=== PATIENT | male | born 1955 | race Caucasian/White ===

== ENCOUNTER → 2022-03-14 09:14 | Outpatient (REF) | payer OTHER, SELFPAY ==
--- NOTE | 2022-03-14 09:25 | CA_ITS ---
Acquisition Time: 2022-03-14 10:01:32 Total Exercise Time: 00:05:00 Test Indications: CHEST PRESSURE Medications: LISINOPRIL ASA Protocol: GINO Max HR: 141 BPM 90% of Pred: 155 BPM Max BP: 148/080 mmHG Max Work Load: 7.0 METS Exercise stress test with exercise 5 min of Gino protocol, with mild shortness of breath and the start of his mid chest tightness, with isolated PVC, with normotensive response to exercise, with EKG changes meeting criteria for ischemia: ST depressions inferiorly and V3-V6, ST elevation aVR with slow gradual improvement in recovery. His symptoms resolved with 3 minutes of rest. Test reviewed with Dr Durham [facility] and left about report for Dr Fitzgerald, urgency of abnormal findings expressed. Pt informed of abnormal stress test. He has no cardiac hx. Informed him of need for light activity only. s/s angina reviewed. ED care if needed for symptoms. Continue daily aspriin, as he is already on. Call PCP office to further discuss plan if he does not hear from then by tomorrow. Pt states full understanding. Referred By: Ayaz Fitzgerald Overread By: LORE CHAPMAN
== END ==
LOC: HO.CARD 09:14
PROVIDERS: PCP Physician Assistant; Visit Provider Physician Assistant
DX: I20.9 Angina pectoris, unspecified (principal)
CPT/HCPCS: 93017

== ENCOUNTER → 2022-05-16 07:59 | Outpatient (BNVA) | payer OTHER, SELFPAY | PROVIDERS: PCP Physician Assistant; Visit Provider Nurse Practitioner | DX: Z01.818 Encounter for other preprocedural examination (principal); R07.9 Chest pain, unspecified; Z12.11 Encounter for screening for malignant neoplasm of colon | CPT/HCPCS: 99202 ==

== ENCOUNTER 2023-01-13 08:31 | Day surgery (SDC) | payer OTHER, SELFPAY ==
[2023-01-08 12:57] VITALS: BMI 21.2
--- NOTE | 2023-01-09 13:43 | P.CONAN_ITS ---
HPI - Anesthesia Eval Consult details Narrative: 67yo M for Colonoscopy Cardiac optimized [facility] Active Problems Active Problems: All Active Problems (Updated 01/09/23 @ 10:00 by Yenni Amezcua, RN) Pre-op exam (Acute) Chronic low back pain (Acute) Tinnitus (Acute) Chest pain (Acute) Past Medical History Medical History (Updated 01/09/23 @ 10:00 by Yenni Amezcua, RN) CVA, old, facial weakness Elevated cholesterol HTN (hypertension) Hx of frostbite Surgical History Surgical History (Updated 01/08/23 @ 12:54 by Yenni Amezcua, RN) Hx of colonoscopy [place] teeth removed Social History Social History (Updated 01/08/23 @ 13:00 by Yenni Amezcua, RN) Household Members: Significant Other Are you a primary care support representative to a significant other at home: No Do you presently have visiting nurse or other home services: No Alcohol intake: current Alcohol intake frequency: does not drink Patient Tobacco Use Status: Never used Tobacco Use of substances other than those prescribed or required for medical reasons: No Meds Allergies Allergy/AdvReac Type Severity Reaction Status Date / Time Rdndltm-FLH-DnH Reductase AdvReac Intermediate muscle Verified 01/08/23 12:55 Inhibitor weakness Home Medications Medication Instructions Recorded Confirmed Last Taken Type aspirin 81 mg chewable tablet 81 mg PO DAILY 01/08/23 01/08/23 Unknown History cholecalciferol (vitamin D3) 25 25 mcg PO DAILY 01/08/23 01/08/23 Unknown History mcg (1,000 unit) tablet (Vitamin D3) ezetimibe 10 mg tablet (Zetia) mg 01/08/23 01/08/23 Unknown History lisinopril 10 mg tablet 10 mg PO DAILY 01/08/23 01/08/23 Unknown History metoprolol succinate 25 mg 25 mg PO DAILY 01/08/23 01/08/23 Unknown History tablet,extended release 24 hr multivitamin 1 tab PO DAILY 01/08/23 01/08/23 Unknown History nitroglycerin 0.4 mg sublingual mg 01/08/23 01/08/23 Unknown History tablet Exam Exam Date and Time: January 09, 2023 1343 Height,Weight and Vital Signs: Height 6 ft 2 in Weight 74.843 kg Narrative Narrative: EKG 05/2022 NSR @ 64 Cardiac cath 2021 severe proximal circumflex stenosis (medical management) ECHO 2021 RV nml in size and function LV size nml LV wall thickness nml LV function nml LVEF 55-60% No RWMA Grade 1 DD with impaired LV relax Assessment and Plan Assessment Anesthesia Assessment: Chart Reviewed
[2023-01-13 09:14] VITALS: BP 152/73; PULSE 79; RESP 16; TEMP 36.6; O2SAT 100
--- NOTE | 2023-01-13 09:36 | P.CONAN_ITS ---
[facility] Active Problems Active Problems: All Active Problems (Updated 01/09/23 @ 10:00 by Yenni Amezcua, HKANH) Pre-op exam (Acute) Chronic low back pain (Acute) Tinnitus (Acute) Chest pain (Acute) Past Medical History Medical History (Updated 01/09/23 @ 10:00 by Yenni Amezcua, RN) CVA, old, facial weakness Elevated cholesterol HTN (hypertension) Hx of frostbite Family History Family history of problems with anesthesia: No Surgical History Surgical History (Updated 01/08/23 @ 12:54 by Yenni Amezcua, RN) Hx of colonoscopy [place] teeth removed History of Problems with Anesthesia: No Social History Social History (Updated 01/08/23 @ 13:00 by Yenni Amezcua RN) Household Members: Significant Other Are you a primary director of primary care to a significant other at home: No Do you presently have visiting nurse or other home services: No Alcohol intake: current Alcohol intake frequency: does not drink Patient Tobacco Use Status: Never used Tobacco Have you been hit, kicked, punched, or otherwise hurt by someone within the past year? If so, by whom?: No Are you DNR?: No Advance Directives: No Advance Directives Information Provided: Yes Advance Directives on File: No Recently lost weight without trying: Yes How much weight loss: 14-23 pounds Eating poorly because of decreased appetite: No Nutrition screen score: 4 Nutrition Risks: No Nutritional Risk Poor oral hygiene: No Meds Allergies Allergy/AdvReac Type Severity Reaction Status Date / Time Blnfcun-PQB-NxJ Reductase AdvReac Intermediate muscle Verified 01/08/23 12:55 Inhibitor weakness Active Medications: Current Medications Lactated Ringer's (Lr) 1,000 mls @ 100 mls/hr IVCONT .Q10H [facility] Home Medications Medication Instructions Recorded Confirmed Last Taken Type aspirin 81 mg chewable tablet 81 mg PO DAILY 01/08/23 01/13/23 01/11/23 History cholecalciferol (vitamin D3) 25 25 mcg PO DAILY 01/08/23 01/13/23 Unknown History mcg (1,000 unit) tablet (Vitamin D3) ezetimibe 10 mg tablet (Zetia) 10 mg PO DIRECTED 01/08/23 01/13/23 Unknown History lisinopril 10 mg tablet 10 mg PO DAILY 01/08/23 01/13/23 Unknown History metoprolol succinate 25 mg 25 mg PO DAILY 01/08/23 01/13/23 01/13/23 History tablet,extended release 24 hr multivitamin 1 tab PO DAILY 01/08/23 01/13/23 Unknown History nitroglycerin 0.4 mg sublingual 0.4 mg sublingual DIRECTED PRN 01/08/23 01/13/23 Unknown History tablet Chest Pain Exam Exam Date and Time: January 13, 2023 0936 Height,Weight and Vital Signs: Height 6 ft 2 in Weight 74.843 kg Last Vital Signs Temp 97.9 F 01/13/23 09:14 Pulse 79 01/13/23 09:14 Resp 16 01/13/23 09:14 BP 152/73 H 01/13/23 09:14 Pulse Ox 100 01/13/23 09:14 O2 Del Method Room Air 01/13/23 09:14 Airway Mallampati Class: II TM Dist: >3cm Neck ROM: Full Heart: rrr Lungs: cta Assessment and Plan Assessment Anesthesia Assessment: Anesthesia Plan Discussed and Chart Reviewed Final Anesthetic Review Family History of Problems with Anesthesia: No History of Problems with Anesthesia: No NPO: Yes ASA Class: II Final Preanesthetic Review: No Changes in Pt Med Stat, Meds/Allgs Chart Reviewed and Consent Obtained/Reviewed Patient Risk: Intermediate Procedure Risk: Intermediate Anesthetic Plan Anesthetic Plan: MAC: Disposition: Standard PACU
--- NOTE | 2023-01-13 09:46 | MHC.SHP ---
Pre-Procedural Eval Section A Date of Service: 01/13/23 The patient is an INPATIENT: No The History & Physical has been completed within 30 days and I have reviewed it.: No Section B Chief Complaint: screening Relevant Family History (Specify if Yes): No Relevant Social History: None Present Medications: see Short Stay Collaborative assessment Medical History: Significant History (CVA, old, facial weakness) History of Previous Operations: Relevant previous surgery/procedure and date(s) ( wisdom teeth removal) Allergies: Allergies Allergy/AdvReac Type Severity Reaction Status Date / Time Yrhuenh-JGM-CmX Reductase AdvReac Intermediate muscle Verified 01/08/23 12:55 Inhibitor weakness Review of Systems Sugical H&P ROS: Negative: Constitution, Cardiovascular, Respiratory and Gastrointestinal Exam Surgical H&P Exam: Normal: Heart, Normal: Lungs, Normal: Extremities and Normal: Abdomen Plan Diagnosis/Plan: Unchanged I have reviewed the history and physical and performed a pertinent physical examination on my patient. No changes have occurred unless specified. Time Spent With Patient Time: Total time managing care of this patient today ____ minutes.
--- NOTE | 2023-01-13 09:47 | W.PM.OPN ---
Operative Note Operative Note Date of Service: 01/13/23 Narrative: COLONOSCOPY TILL CECUM Pre-op diagnosis: Colon cancer screening Post-op diagnosis:? diverticulosis, hemorrhoids Endoscopist:? Eboni Philippe MD Anesthesia:?MAC Consent: Indications for the procedure and potential complications of bleeding, perforation, reaction to medications and missed diagnosis were discussed with the patient and informed consent was obtained. Instrument: Olympus CF H 190 L variable stiffness adult colonoscope Monitoring: Vital signs and clinical assessment, intermittent blood pressure monitoring, continuous EKG monitoring, Pulse oximetry and Carbon Dioxide monitoring were done throughout the procedure. Please see anesthesia flowsheet. Colon withdrawl time was 11 minutes. Procedure: The patient was placed in the left lateral decubitis position and pre-procedure medications were administered. After a digital rectal examination of the ano-rectum, the video colonoscope was inserted into the rectum and advanced through the colon to the cecum. The colonoscope was slowly withdrawn in a retrograde panoramic fashion and the colon mucosa was carefully examined including a retroflexed view of the rectum. Findings and interventions are described below. Procedure Difficulty: colon was long and there was some loop formation. No maneuvers were required Findings: Terminal Ileum: Not evaluated Cecum: Normal Ascending Colon: Normal Transverse Colon: Normal Descending Colon: Normal Sigmoid Colon: Moderate diverticulosis Rectum: Normal Ano-rectum: Moderate internal hemorrhoids Colon preparation: Excellent Impression and Post Procedure Diagnosis: Colonoscopy Findings: No polyps were detected Moderate diverticulosis seen in the sigmoid colon Moderate hemorrhoids on retroflexed exam. Plan: Patient has an appointment on 01/28/23 in the GI [facility] with Sabrina Giron NP . Repeat Colonoscopy in 10 years (earlier if pt develops any lower GI symptoms or in case of new family history). Above findings were reviewed with the patient and diverticulosis handout was given in the discharge area
[2023-01-13] MEDS: Lactated Ringers 1,000 ML 100 ML IVCONT (09:58)
[2023-01-13 10:49] VITALS: BP 132/78; PULSE 87; RESP 16; TEMP 36.3; O2SAT 96
[2023-01-13 11:03] VITALS: BP 127/72; PULSE 74; RESP 16; O2SAT 98
[2023-01-13 11:17] VITALS: BP 140/78; PULSE 67; RESP 16; TEMP 36.3; O2SAT 98
== END 2023-01-13 11:56 | disposition home or self-care (01) ==
PROVIDERS: PCP Physician Assistant; Visit Provider Internal Medicine Gastroenterology
PROC: 0DJD8ZZ Inspection of Lower Intestinal Tract, Via Natural or Artificial Opening Endoscopic (ICD-10-PCS; CPT 45378; principal; 2023-01-13 10:10)
DX: Z12.11 Encounter for screening for malignant neoplasm of colon (principal); K57.30 Diverticulosis of large intestine without perforation or abscess without bleeding; K64.8 Other hemorrhoids; I69.392 Facial weakness following cerebral infarction; I10 Essential (primary) hypertension; E78.00 Pure hypercholesterolemia, unspecified; R07.9 Chest pain, unspecified; G89.29 Other chronic pain; M54.50 Low back pain, unspecified; H93.19 Tinnitus, unspecified ear; Z79.82 Long term (current) use of aspirin; Z79.899 Other long term (current) drug therapy; Z88.8 Allergy status to other drugs, medicaments and biological substances
CPT/HCPCS: 45378

== ENCOUNTER 2023-10-08 13:50 | Outpatient (AMB) | payer OTHER, SELFPAY ==
--- NOTE | 2023-10-08 14:00 | A.OFFVIS_ITS ---
Intake Vital Signs 10/08/23 14:05 Weight 175 lb BP 140/68 H Blood Pressure Location Rt brachial Position Sitting Pulse 63 Intake Visit Reasons: painful RIH Intake Note: Patient here referred by PCP Dr. Fitzgerald for painful Rt inguinal hernia. Has been present for 1m. Patient c/o: difference with uriation. More sense of urgency. Head Of Housekeeping Required: No Accompanied by: Self / Same As Patient Allergies Iexonpn-FSG-ZsF Reductase Inhibitor Adverse Reaction (Intermediate, Verified 10/08/23 14:01) muscle weakness HPI HPI Comments History of Present Illness Details Patient presents with a several month history of progressive worsening and enlarging right inguinal hernia. He presents here for further evaluation. Patient denies any specific GE new GI issues or complaints. He is tolerating his diet. Having normal bowel habits. His activity levels are somewhat limited secondary to the symptomatic hernia. He walks very large dog which causes lot of pulling which he thinks is aggravated hernia. Chart was reviewed patient evaluated [facility] Medical History (Updated 01/09/23 @ 10:00 by Yenni Amezcua RN) Hx of frostbite Elevated cholesterol HTN (hypertension) CVA, old, facial weakness Surgical History (Updated 10/08/23 @ 14:33 by Mango Hall MD) Hx of colonoscopy [place] teeth removed Social History (Updated 01/08/23 @ 13:00 by Yenni Amezcua, KHANH) Household Members: Significant Other Are you a primary spiritual care coordinator to a significant other at home: No Do you presently have visiting nurse or other home services: No Alcohol intake: current Alcohol intake frequency: does not drink Patient Tobacco Use Status: Never used Tobacco Physical Exam Vital Signs: Last Vital Signs Pulse 63 10/08/23 14:05 BP 140/68 H 10/08/23 14:05 Chest Other: Chest breath sounds bilaterally, HS 1 in 2 GI Other: Patient was examined both supine and standing with Valsalva. Abdomen soft benign. Left groin negative. Genitalia within normal limits. Very large right inguinal hernia. Assessment & Plan Assessment & Plan (1) Right inguinal hernia: Code(s): K40.90 - Unilateral inguinal hernia, without obstruction or gangrene, not specified as recurrent Plan Risks, benefits, alternatives of open right inguinal hernia repair with mesh were reviewed with the patient and included but not limited to bleeding, infection, recurrence, numbness, pain, scarring the patient wished to proceed. All questions answered. Arrangements will be made for this. Coding Level of Care Code New Pt Level 5 (17775) Global (21352) Diagnoses Right inguinal hernia K40.90
[2023-10-08 14:05] VITALS: BP 140/68; PULSE 63
== END 2023-10-08 14:26 | disposition home or self-care (01) ==
PROVIDERS: PCP Physician Assistant; Referring Provider Physician Assistant; Visit Provider Surgery
DX: K40.90 Unilateral inguinal hernia, without obstruction or gangrene, not specified as recurrent (principal)
CPT/HCPCS: 99204

== ENCOUNTER → 2023-10-08 13:50 | Outpatient (BNVA) | payer OTHER, SELFPAY | PROVIDERS: PCP Physician Assistant; Referring Provider Physician Assistant; Visit Provider Surgery | DX: K40.90 Unilateral inguinal hernia, without obstruction or gangrene, not specified as recurrent (principal) | CPT/HCPCS: 99202 ==

== ENCOUNTER 2023-10-23 09:13 | Day surgery (SDC) | payer OTHER, SELFPAY ==
[2023-10-20 14:03] VITALS: BMI 22.5
--- NOTE | 2023-10-22 09:54 | MHC.SHP ---
Pre-Procedural Eval Section A Date of Service: 10/22/23 The patient is an INPATIENT: No Changes since office visit: No Cold of Flu in the past 2 weeks, No New Medical Problems, No Changes in Medication and No Patient answered all questions The History & Physical has been completed within 30 days and I have reviewed it.: Yes Section B Chief Complaint: Unilateral inguinal hernia, without obstruction or Allergies: Allergies Allergy/AdvReac Type Severity Reaction Status Date / Time Iodinated Contrast Media Allergy Unknown Verified 10/20/23 14:01 [Contrast Dye] Nadfoid-IZB-XjF Reductase AdvReac Intermediate muscle Verified 10/08/23 14:01 Inhibitor weakness Plan I have reviewed the history and physical and performed a pertinent physical examination on my patient. No changes have occurred unless specified. Time Spent With Patient Time: Total time managing care of this patient today ____ minutes.
--- NOTE | 2023-10-22 10:14 | P.CONAN_ITS ---
Documented by User: Meliza Easley NP 10/22/23 10:15 HPI - Anesthesia Eval Consult details Narrative: 68yo M for Right Hernia Repair Inguinal CVA 2019 [facility] Active Problems Active Problems: All Active Problems (Updated 01/09/23 @ 10:00 by Yenni Amezcua, KHANH) Right inguinal hernia (Acute) Chest pain (Acute) Tinnitus (Acute) Chronic low back pain (Acute) Pre-op exam (Acute) Past Medical History Medical History (Updated 10/23/23 @ 10:58 by Ashlyn Burgess MD) SOB (shortness of breath) Hx of frostbite Elevated cholesterol HTN (hypertension) CVA, old, facial weakness Family History Family history of problems with anesthesia: No Surgical History Surgical History Hx of colonoscopy [place] teeth removed History of Problems with Anesthesia: No Social History Social History Household Members: Significant Other Are you a primary director long term care to a significant other at home: No Do you presently have visiting nurse or other home services: No Alcohol intake: current Alcohol intake frequency: does not drink Patient Tobacco Use Status: Never used Tobacco Use of substances other than those prescribed or required for medical reasons: No Are you DNR?: No Advance Directives: No Advance Directives Information Provided: Yes Meds Allergies Allergy/AdvReac Type Severity Reaction Status Date / Time Iodinated Contrast Media Allergy Unknown Verified 10/20/23 14:01 [Contrast Dye] Sqrqwlu-SWC-OnV Reductase AdvReac Intermediate muscle Verified 10/08/23 14:01 Inhibitor weakness Active Medications: Current Medications Cefazolin Sodium/Dextrose (Ancef) 2 gm in 50 mls @ 100 mls/hr IV PREOP ONE Stop: 10/22/23 10:22 Home Medications Medication Instructions Recorded Confirmed Last Taken Type aspirin 81 mg chewable tablet 81 mg PO DAILY 01/08/23 10/23/23 01/11/23 History cholecalciferol (vitamin D3) 25 25 mcg PO DAILY 01/08/23 10/23/23 Unknown History mcg (1,000 unit) tablet (Vitamin D3) ezetimibe 10 mg tablet (Zetia) 10 mg PO DIRECTED 01/08/23 10/23/23 Unknown History lisinopril 10 mg tablet 10 mg PO DAILY 01/08/23 10/23/23 Unknown History metoprolol succinate 25 mg 25 mg PO DAILY 01/08/23 10/23/23 10/23/23 07:45 History tablet,extended release 24 hr donepezil 5 mg tablet 5 mg PO BEDTIME 10/08/23 10/23/23 Unknown History Exam Height,Weight and Vital Signs: Height 6 ft 2 in Weight 79.379 kg Assessment and Plan Assessment Anesthesia Assessment: Chart Reviewed Final Anesthetic Review Family History of Problems with Anesthesia: No History of Problems with Anesthesia: No Documented by User: Ashlyn Burgess MD 10/23/23 11:02 [facility] Active Problems Active Problems: All Active Problems (Updated 10/23/23 @ 10:18 by Ashlyn Burgess. ) Right inguinal hernia (Acute) Tinnitus (Acute) Chronic low back pain (Acute) Pre-op exam (Acute) H/o SOB and exertional chest tightness (patient denies h/o CP) but documented during stress test and cardiology consult. Patient had cardiac cath- result not available but patient states they found a blockage but elected not to do anything about it . It does appear however this refers to interventional (stents)- medical management was instituted COOPER- diagnosed 08/04. Awaiting titration of CPAP therapy. 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 Past Medical History Medical History (Updated 10/23/23 @ 10:58 by Ashlyn Burgess MD) SOB (shortness of breath) Hx of frostbite Elevated cholesterol HTN (hypertension) CVA, old, facial weakness Surgical History Surgical History Hx of colonoscopy [place] teeth removed Social History Social History Household Members: Significant Other Are you a primary director long term care to a significant other at home: No Do you presently have visiting nurse or other home services: No Alcohol intake: current Alcohol intake frequency: does not drink Patient Tobacco Use Status: Never used Tobacco Use of substances other than those prescribed or required for medical reasons: No Are you DNR?: No Advance Directives: No Advance Directives Information Provided: Yes Meds Allergies Allergy/AdvReac Type Severity Reaction Status Date / Time Iodinated Contrast Media Allergy Unknown Verified 10/20/23 14:01 [Contrast Dye] Dpjwdew-RIY-WpW Reductase AdvReac Intermediate muscle Verified 10/08/23 14:01 Inhibitor weakness Home Medications Medication Instructions Recorded Confirmed Last Taken Type aspirin 81 mg chewable tablet 81 mg PO DAILY 01/08/23 10/23/23 01/11/23 History cholecalciferol (vitamin D3) 25 25 mcg PO DAILY 01/08/23 10/23/23 Unknown History mcg (1,000 unit) tablet (Vitamin D3) ezetimibe 10 mg tablet (Zetia) 10 mg PO DIRECTED 01/08/23 10/23/23 Unknown History lisinopril 10 mg tablet 10 mg PO DAILY 01/08/23 10/23/23 Unknown History metoprolol succinate 25 mg 25 mg PO DAILY 01/08/23 10/23/23 10/23/23 07:45 History tablet,extended release 24 hr donepezil 5 mg tablet 5 mg PO BEDTIME 10/08/23 10/23/23 Unknown History Exam Height,Weight and Vital Signs: Height 6 ft 2 in Weight 79.379 kg Vital Signs Temp Pulse Resp BP Pulse Ox O2 Del Method 10/23/23 10:00 98.4 F 63 16 134/73 99 Room Air Airway Mallampati Class: I TM Dist: >3cm Neck ROM: Full Loose/Missing/Broken Teeth: Yes (Missing molars. Denies broken or loose teeth) Heart: RRR Lungs: CTAB Assessment and Plan Assessment Anesthesia Assessment: Anesthesia Plan Discussed Final Anesthetic Review NPO: Yes ASA Class: III Final Preanesthetic Review: No Changes in Pt Med Stat, Meds/Allgs Chart Reviewed, Consent Obtained/Reviewed and Anes Risks/Benef Reviewed Patient Risk: Intermediate Procedure Risk: Low Assessment/Block/Sedation in SS: Assess/Block/Sedation-SS Anesthetic Plan Anesthetic Plan: GA and MAC: Disposition: Standard PACU
[2023-10-23 09:23] VITALS: BMI 22.1
[2023-10-23 10:00] VITALS: BP 134/73; PULSE 63; RESP 16; TEMP 36.9; O2SAT 99
[2023-10-23] MEDS: Lactated Ringers 1,000 ML 100 ML IVCONT (10:31)
[2023-10-23 12:37] VITALS: BP 120/68; PULSE 61; RESP 16; TEMP 36.1; O2SAT 95
--- NOTE | 2023-10-23 12:38 | P.OP_ITS ---
Operative Note Operative Note Date of Service: 10/23/23 Narrative: Preoperative diagnosis: [] Symptomatic right inguinal hernia Postop diagnosis: [] Same Procedure [] open right inguinal herniorrhaphy with Bard mesh Surgeon: [] Rafael Veterinary Epidemiologist: [] Allen Type of Anesthesia: [] MAC Indication for surgery: [] Large indirect right inguinal hernia. No direct hernia demonstrated. Findings: [] Patient brought to the operating room, placed on table supine position, after adequate level of MAC anesthesia was induced, the right groin was prepped and draped in usual sterile fashion. Ilioinguinal and in filtration of the incision with 0.5% Marcaine/1% lidocaine was undertaken followed by a small right para- inguinal incision. This carried down through skin, subcutaneous tissue, Mar's fascia. External oblique fibers were opened their direction with care to isolate and preserve the ilioinguinal nerve throughout the procedure. Spermatic cord was identified and retracted from the field. Next ablation of the cord demonstrated a large indirect hernia sac which was from the cord and reduced. No direct hernia was demonstrated. A large Bard plug was placed in the indirect defect, and sutured inferiorly to the inguinal ligament and superiorly to the transversalis fascia using interrupted 0 Ethibond suture. Mesh also cover the inguinal floor. A completion, mesh was in good position with no tension or gallops. Wound was irrigated, secured hemostasis, and closed in the following manner; externally fascia was closed using running 2-0 Vicryl suture. Mar's fascia was reapproximated using interrupted 3-0 Vicryl sutures. Interrupted inverted deep dermal 3-0 Vicryl sutures followed by running subcuticular 4-0 Vicryl sutures were placed. Steri-Strips and sterile dressings were applied. Ipsilateral testicle was intrascrotal at completion the procedure. Sponge, needle, and instrument counts reported correct. Patient tolerated the procedure well and emerged anesthesia in stable condition. EBL minimal
[2023-10-23 12:42] VITALS: BP 116/63; PULSE 57; RESP 16; O2SAT 94
[2023-10-23 12:47] VITALS: BP 114/62; BP 116/59; PULSE 57; PULSE 58; RESP 16; RESP 18; O2SAT 94; O2SAT 95
[2023-10-23 13:08] VITALS: BP 124/69; PULSE 56; RESP 18; O2SAT 95
== END 2023-10-23 14:04 | disposition home or self-care (01) ==
PROVIDERS: PCP Physician Assistant; Visit Provider Surgery
PROC: (CPT 49505; principal; 2023-10-23 11:00)
DX: K40.90 Unilateral inguinal hernia, without obstruction or gangrene, not specified as recurrent (principal); I69.392 Facial weakness following cerebral infarction; I10 Essential (primary) hypertension; R06.02 Shortness of breath; E78.00 Pure hypercholesterolemia, unspecified; G47.33 Obstructive sleep apnea (adult) (pediatric); Z79.82 Long term (current) use of aspirin; Z79.899 Other long term (current) drug therapy; Z88.8 Allergy status to other drugs, medicaments and biological substances; Z91.041 Radiographic dye allergy status
CPT/HCPCS: 49505; C1781; J0665; J0690; J2250; J2405; J2704; J3010

== ENCOUNTER → 2023-10-23 09:13 | Outpatient (BNV) | payer OTHER, SELFPAY | PROVIDERS: PCP Physician Assistant; Visit Provider Surgery | DX: K40.90 Unilateral inguinal hernia, without obstruction or gangrene, not specified as recurrent (principal) | CPT/HCPCS: 49505 ==

== ENCOUNTER 2023-11-03 11:02 | Outpatient (AMB) | payer OTHER, SELFPAY ==
[2023-11-03 11:08] VITALS: BP 130/68; PULSE 57
--- NOTE | 2023-11-03 11:08 | MHC.OFFVIS ---
Intake Vital Signs 11/03/23 11:08 Weight 174 lb BP 130/68 Blood Pressure Location Rt brachial Position Sitting Pulse 57 Intake Visit Reasons: S/P RIH w/mesh Intake Note: Patient here s/p RIH w/mesh on 11-03-23. Reports incisions healing well. Patient c/o: mild pain at times. Never took rx pain meds. Parts Specialist Required: No Accompanied by: Self / Same As Patient Allergies Iodinated Contrast Media [Contrast Dye] Allergy (Verified 11/03/23 11:09) Unknown Zkmsoot-CBN-JsY Reductase Inhibitor Adverse Reaction (Intermediate, Verified 11/03/23 11:09) muscle weakness HPI HPI Comments History of Present Illness Details Status post right inguinal hernia repair. No wound issues or complaints. Tolerating diet. Increasing activity level. Having regular bowel habits. [facility] Medical History SOB (shortness of breath) Hx of frostbite Elevated cholesterol HTN (hypertension) CVA, old, facial weakness Surgical History Right inguinal hernia (10/23/23) Hx of colonoscopy [place] teeth removed Social History Household Members: Significant Other Are you a primary care trainer to a significant other at home: No Do you presently have visiting nurse or other home services: No Alcohol intake: current Alcohol intake frequency: does not drink Patient Tobacco Use Status: Never used Tobacco Physical Exam Vital Signs: Last Vital Signs Pulse 57 11/03/23 11:08 BP 130/68 11/03/23 11:08 GI Other: Abdomen soft. Wound clean dry and intact healing uneventfully. Assessment & Plan Assessment & Plan (1) Status post hernia repair: Code(s): Z98.890 - Other specified postprocedural states; Z87.19 - Personal history of other diseases of the digestive system Plan Patient is doing well. He has been given local instructions, and will follow-up p.r.n.. All questions answered. Coding Level of Care Code Global (67940) Diagnoses Status post hernia repair Z98.890; Z87.19
== END 2023-11-03 11:11 | disposition home or self-care (01) ==
PROVIDERS: PCP Physician Assistant; Visit Provider Surgery
DX: Z98.890 Other specified postprocedural states (principal); Z87.19 Personal history of other diseases of the digestive system
CPT/HCPCS: 99024

== ENCOUNTER → 2023-11-03 11:02 | Outpatient (BNVA) | payer OTHER, SELFPAY | PROVIDERS: PCP Physician Assistant; Visit Provider Surgery | DX: Z87.19 Personal history of other diseases of the digestive system (principal); Z98.890 Other specified postprocedural states | CPT/HCPCS: 99212 ==